=== PATIENT | female | born 1965 | race Caucasian/White ===

== ENCOUNTER 2018-03-01 06:24 | Day surgery (SDC) | payer OTHER ==
[2018-03-01] VITALS (16 sets, daily range): BP systolic 105–164; BP diastolic 52–80; PULSE 68–80; RESP 16–23; Ht 157.5 cm; Wt 80.4 kg
[~2018-03-01] VITALS: Ht 157.5 cm; Wt 80.4 kg
[~2018-03-01 06:24] MED LIST: AMOX500C2 PO; CETI10CA PO; IBUP-1542 PO
[2018-03-01] MEDS ORDERED: SITA100T11 PO (07:28)
[2018-03-01] MEDS ORDERED: METF100010 PO (07:29)
[2018-03-01] MEDS ORDERED: INSULIN ASPART [NOVOLOG] 3 ML PEN SC ONE ×2 (07:30→10:30)
[2018-03-01] MEDS ORDERED: GLIM4TAB PO (07:34)
[2018-03-01] MEDS ORDERED: BENA40TA56 PO (07:34)
[2018-03-01] MEDS ORDERED: AMLO-147 PO (07:35)
[2018-03-01] MEDS ORDERED: CARV6.2579 PO (07:35)
[2018-03-01] MEDS ORDERED: ATOR40TA68 PO (07:37)
[2018-03-01] MEDS ORDERED: CETI1TAB PO (07:38)
[2018-03-01] MEDS ORDERED: INSU100I33 SC (07:38)
--- NOTE | 2018-03-01 07:39 | PREOPHP ---
DATE OF ADMISSION: 03/01/2018 HISTORY OF PRESENT ILLNESS: This is a 52-year-old lady, 1, para 2, with one set of twins and her last normal menstrual period was 02/2016. She was admitted for D and C and hysteroscopy and suc tion curettage. This patient was noted to have endometrial thickening about a year ago. Endometrial biopsy was done, but there was not enough tissue obtained. Ultrasound was repeated and still showed endometrial thickening. Because of such, she did not like to have endometrial biopsy. She wanted t o have the D and C. The procedure was explained to the patient and she understood everything totally . The risks, benefits, and alternatives were discussed with her as well. PAST PERSONAL HISTORY: No history of TB, asthma. ALLERGIES: NO ALLERGIES. SOCIAL HISTORY: Patient does not smoke. She does not drink. MEDICATIONS: She takes drugs for her diabetes and hypertension. PAST SURGICAL HISTORY: She had done and she had gallstones removed. GYNECOLOGIC HISTORY: She had menarche at the age of 12, every 28 days interval, 3 to 4 days duration , and moderate in amount. FAMILY HISTORY: Mother has high blood pressure, heart disease and diabetes. REVIEW OF SYSTEMS: CARDIOVASCULAR: No chest pains. RESPIRATORY: No cough. GASTROINTESTINAL: No diarrhea, no vomiting. GENITOURINARY: No dysuria. PHYSICAL EXAMINATION: GENERAL: Reveals a conscious, coherent lady and in no acute distress. VITAL SIGNS: Her blood pressure 120/80, pulse rate 80 per minute, respirations 16 per minute. BREASTS, HEART AND LUNGS: Within normal limits. ABDOMEN: Soft. No organomegaly. PELVIC: Revealed the cervix to be firm, uterus of normal size, and adnexa were negative for masses. RECTAL: Confirmed the pelvic findings. EXTREMITIES: No pedal edema. ADMITTING DIAGNOSIS: Endometrial thickening, rule out hyperplasia in a postmenopausal. PLAN: The patient was planned to have the above procedure. Dictated By: CORTNEY RAMOS/ÓSCAR Conf#: [id number] DID#: [id number]
[2018-03-01] MEDS ORDERED: GLUCAGON 1 MG INJ IM PRN ×2 (08:00→11:00)
[2018-03-01] MEDS ORDERED: GLUCOSE GEL 15 GRAM TUBE PO PRN ×4 (08:00→11:00)
[2018-03-01] MEDS ORDERED: GLUCOSE GEL 15 GRAM TUBE BUCCAL PRN ×2 (08:00→11:00)
[2018-03-01] MEDS ORDERED: DEXTROSE 50% 50 ML SYRINGE IV PRN ×4 (08:00→11:00)
--- NOTE | 2018-03-01 10:29 | PREAC ---
Date/Time of Note Date/Time of Note DATE: 03/01/18 TIME: 10:27 Anesthesia Eval and Record Evaluation Time Pre-Procedure Interview DATE: 03/01/18 TIME: 10:27 Age 52 Sex female NPO: 8 hrs Preoperative diagnosis endometrial thickening Planned procedure D & C, hysteroscopy, suction curettage Past Medical History Past Medical History: Includes Cardio: HTN, Dyslipidemia Endo: Diabetes GI: Obesity Surgery & Anesthesia Issues No known issue Meds Anticoagulation: No Beta Dhara within 24 hr: Yes Reason Beta Dhara not given: Bradycarida, Hypotension Reported Medications Cetirizine HCl/Pseudoephedrine (Aller-Stefanie D 5-120 mg Tablet) 1 Each Tab.er.12h, 1 EACH PO DAILY, TAB 03/01/18 Insulin Glargine,Hum.rec.anlog (Basaglar Kwikpen U-100) 100 Unit/1 Ml Insuln.pen, 29 UNIT SC QHS, EA 03/01/18 Atorvastatin* (Atorvastatin*) 40 Mg Tablet, 40 MG PO QHS, #30 TAB 03/01/18 Carvedilol* (Carvedilol*) 6.25 Mg Tablet, 6.25 MG PO BID, #60 TAB 03/01/18 Amlodipine Besylate* (Amlodipine Besylate*) 10 Mg Tablet, 10 MG PO DAILY, #30 TAB 03/01/18 Benazepril Hcl* (Benazepril Hcl*) 40 Mg Tablet, 40 MG PO DAILY, #30 TAB 03/01/18 Glimepiride* (Glimepiride*) 4 Mg Tablet, 4 MG PO WITH BREAKFAST, TAB 03/01/18 Metformin Hcl* (Metformin Hcl*) 1,000 Mg Tablet, 1000 MG PO WITH BREAKFAST DINNE, #60 TAB 03/01/18 Sitagliptin* (Januvia*) 100 Mg Tablet, 100 MG PO DAILY, #30 TAB 03/01/18 Discontinued Scripts Cetirizine Hcl* (Zyrtec*) 10 Mg Capsule, 10 MG PO DAILY, #30 TAB.CHEW Prov:BLACK BUSTILLO NP 01/27/16 Ibuprofen* (Motrin*) 600 Mg Tab, 600 MG PO Q6H PRN for PAIN AND OR ELEVATED TEMP, #30 TAB Prov:BLACK BUSTILLO CONDENSER TUBE TENDER 01/27/16 Amoxicillin* (Amoxicillin*) 500 Mg Cap, 500 MG PO TID for 10 Days, CAP Prov:BLACK BUSTILLO CONDENSER TUBE TENDER 01/27/16 Current Medications Miscellaneous Information 1 ea NOTE XX ; Start 03/01/18 at 08:00 Glucose (Glutose) 15 gm Q15M PRN PO DECREASED GLUCOSE; Start 03/01/18 at 08:00 Glucose (Glutose) 22.5 gm Q15M PRN PO DECREASED GLUCOSE; Start 03/01/18 at 08:00 Dextrose (D50w Syringe) 25 ml Q15M PRN IV DECREASED GLUCOSE; Start 03/01/18 at 08:00 Dextrose (D50w Syringe) 50 ml Q15M PRN IV DECREASED GLUCOSE; Start 03/01/18 at 08:00 Glucagon (Glucagen) 1 mg Q15M PRN IM DECREASED GLUCOSE; Start 03/01/18 at 08:00 Glucose (Glutose) 15 gm Q15M PRN BUCCAL DECREASED GLUCOSE; Start 03/01/18 at 08:00 Meds reviewed: Yes Allergies Coded Allergies: No Known Allergy (Unverified , 03/01/18) Allergies Reviewed: Yes Labs/Studies Labs Reviewed: Reviewed by anesthesiologist Blood Bank Test 03/01/18 07:50 Antibody Screen NEGATIVE Blood Type O POSITIVE test: Negative Studies: ECG, CXR Pre-procedure Exam Last vitals Vital Signs Date Temp Pulse Resp B/P (MAP) Pulse Ox O2 O2 Flow FiO2 Time Delivery Rate 03/01/18 96.9 68 16 164/71 97 Room Air 07:29 (102) Airway: Adequate mouth opening, Adequate thyromental dist Mallampati: Mallampati II Teeth: Normal Lung: Normal Heart: Normal ASA Physical Status ASA physical status: 3 Emergency: None Planned Anesthetic General/MAC: LMA Planned Pain Management Parenteral pain med Pre-operative Attestations Prior to commencing anesthesia and surgery, the patient was re-evaluated, there was verification of: *The patient's identity *The results of appropriate recent lab work and preoperative vital signs *The above evaluation not changing prior to induction *Anesthetic plan, risk benefits, alternative and complications discussed with patient/family; questions answered; patient/family understands, accepts and wishes to proceed. ISIDORO MANCERA MD Mar 01, 2018 10:29
[2018-03-01] MEDS ORDERED: OXYCODONE/ACETAMINOPHEN (5/325) TAB PO PRN (10:30)
[2018-03-01] MEDS ORDERED: FENTAnyl 50 MCG/ML VIAL IV PRN (10:30)
[2018-03-01] MEDS ORDERED: PROCHLORPERAZINE 10 MG INJ IV PRN (10:30)
[2018-03-01] MEDS ORDERED: HYDROmorphONE 1 MG/5 ML IV SYRINGE IV PRN ×3 (10:30)
[2018-03-01] MEDS ORDERED: MEPERIDINE 25 MG INJ IV PRN (10:30)
[2018-03-01] MEDS ORDERED: ONDANSETRON 4 MG INJ IV PRN (10:30)
[2018-03-01] MEDS ORDERED: LABETALOL HCL 20MG INJ IV PRN (10:30)
[2018-03-01] MEDS ORDERED: hydrALAzine 20 MG INJ IV PRN (10:30)
[2018-03-01] MEDS ORDERED: DIPHENHYDRAMINE 50 MG INJ IV PRN (10:30)
[2018-03-01] MEDS ORDERED: MIDAZOLAM 1 MG/ML 2 ML INJ ONE (11:21)
[2018-03-01] MEDS ORDERED: FAMOTIDINE 20 MG INJ ONE (11:31)
[2018-03-01] MEDS ORDERED: PROPOFOL 20 ML ONE (11:31)
[2018-03-01] MEDS ORDERED: ONDANSETRON 4 MG INJ ONE (11:31)
[2018-03-01] MEDS ORDERED: LIDOCAINE 2% (SDV) 5 ML INJ ONE (11:31)
[2018-03-01] MEDS ORDERED: FENTAnyl 50 MCG/ML VIAL ONE (11:34)
[2018-03-01] MEDS ORDERED: hydrALAzine 20 MG INJ ONE (11:35)
--- NOTE | 2018-03-01 11:59 | PAC ---
Date/Time of Note Date/Time of Note DATE: 03/01/18 TIME: 11:58 Post-Anesthesia Notes Post-Anesthesia Note Last documented vital signs Vital Signs Date Temp Pulse Resp B/P (MAP) Pulse Ox O2 O2 Flow FiO2 Time Delivery Rate 03/01/18 96.9 68 16 164/71 97 Room Air 07:29 (102) Activity: WNL Respiratory function: WNL Cardiovascular function: WNL Mental status: Baseline Pain reasonably controlled: Yes Hydration appropriate: Yes Nausea/Vomiting absent: Yes Comments BP: 105/52 HR: 96 RR: 15 T: 97.5 SaO2: 96% ISIDORO MANCERA MD Mar 01, 2018 11:59
--- NOTE | 2018-03-01 17:48 | SIPON ---
Date/Time of Note Date/Time of Note DATE: 03/01/18 TIME: 17:46 Operative Report Preoperative Diagnosis POST MENOPAUSAL BLEEDING ENDOMETRIAL THICKENING Postoperative Diagnosis POST MENOPAUSAL BLEEDING ENDOMETRIAL THICKENING Operation/Procedure Performed D&C HYSTEROSCOPY SUCTION CURETTAGE Surgeon see signature line loan officer assistant METAL SOLDERER Anesthesia: general Estimated blood loss: minimal Transfusion Required none Specimen ECC EMC SUCTION CURETTAGE Grafts/Implants none Complications none CORTNEY ISLAS MD Mar 01, 2018 17:48
--- NOTE | 2018-03-03 07:02 | OPR ---
DATE OF OPERATION: 03/01/2018 PREOPERATIVE DIAGNOSIS: Postmenopausal and the endometrial thickening, rule out endometrial hyperpla kassandra. POSTOPERATIVE DIAGNOSIS: Pending pathology report. SURGEON: Cortney Bran MD INTEGRATED PEST MANAGEMENT TECHNICIAN: Royal araujo. ANESTHESIA: General. OPERATIVE TECHNIQUE: Under general anesthesia, the patient was prepped and draped in the usual fashi on for vaginal surgery. Pelvic exam under anesthesia revealed the cervix to be firm, uterus of cortney l size, and adnexa were negative for masses. Then, the heavy weight vaginal retractor was put in jaya ce and the anterior lip of the cervix was grasped with an Allis clamp. Endocervical dilatation up to Maddi 6 was preceded. Uterus was sounded to about 3 inches. Then the hysteroscope was inserted ins brit the uterine cavity and connected with the light source. The uterus was distended with normal serenity ine. There was no polyps or fibroids seen. Endocervical curettage was done and a small amount of tis haydee was obtained. Endometrial curettage was done and a small amount of tissue was obtained. Suction tip size 6 was inserted inside the uterine cavity and suction curettage was done and a small amount of tissue was obtained. The uterus was intact during and after the procedure. The patient tolerated the procedure well. Estimated blood loss was minimal. Vital signs were stable during and after the procedure. Dictated By: CORTNEY RAMOS/ÓSCAR Conf#: [id number] DID#: [id number]
== END 2018-03-01 13:47 | disposition home or self-care (01) ==
LOC: SDS 06:24
PROVIDERS: ATTEND Obstetrics & Gynecology
DX: N95.9 Unspecified menopausal and perimenopausal disorder (principal); E11.9 Type 2 diabetes mellitus without complications; I10 Essential (primary) hypertension; E78.5 Hyperlipidemia, unspecified; E66.9 Obesity, unspecified; Z68.32 Body mass index [BMI] 32.0-32.9, adult
CPT/HCPCS: 58558; 82962; 86850; 86900; 86901; 88305; J0360; J1815; J2250; J2405; J3010; Z7610; 84703